=== PATIENT | male | born 1955 | race Caucasian/White ===

== ENCOUNTER 2023-10-28 06:21 | Day surgery (SDC) | payer MEDICARE, OTHER, SELFPAY ==
[2023-10-28] VITALS (10 sets, daily range): BP systolic 135–191; BP diastolic 73–107; BMI 36.8
[2023-10-28] MEDS: NSS 311 ML IV (06:58)
--- NOTE | 2023-10-28 08:02 | ITS.CL.CATH ---
Pulmonary Care Nurse - Catheterization
Cardiac Catheterization
Procedure Report:
CARDIAC CATHETERIZATION REPORT
Date of Procedure: 10/28/2023
Referring: Ubaldo Munguia D.O.
INDICATION: Known coronary artery disease, accelerating angina.
PROCEDURE:
1. Left heart catheterization.
2. Coronary angiography.
ACCESS:
6 Amhar[place] right radial artery.
CATHETERS:
1. 5 [employer]har[place] JR4.
2. 5 [place]har[place] JL 3.5.
HEMODYNAMIC DATA
Weight (kg): 103.5
AO (s/d/x, mmHg): 163/87/115
LV (s/x mmHg): 166/30 (A wave to 43)
LEFT VENTRICULOGRAPHY: Not performed.
CORONARY ANGIOGRAPHY
Dominance: Right.
Left Main: Normal size, bifurcating vessel. There is no coronary artery disease.
LAD: Normal size vessel giving rise to 2 significant diagonals. A patent stent is present in the proximal vessel. There are luminal irregularities throughout.
Ramus: Congenitally absent.
Circumflex: Small size, nondominant vessel giving rise to several small obtuse marginals.
RCA: Large size, dominant vessel with a significant posterolateral arcade that supplies the majority of the inferior and inferolateral wall. There are minor luminal irregularities.
INTERVENTION(S)
None.
Closure Device: Vascular band for the right radial artery.
Radiation (mGy): 409.87
DAP (cm2.Gy): 38.9884
Fluoroscopy time (minutes): 2.0
Sedation time (minutes): 12
CONCLUSIONS
1. Right dominant circulation luminal irregularities in the circumflex, distal LAD and RCA. There is a patent stent in the proximal LAD with no in-stent restenosis.
2. Severely elevated filling pressures (LVEDP = 30 mmHg at 103.5 kg) with severe diastolic dysfunction (A wave to 43 mmHg).
RECOMMENDATIONS:
1. Expectant management after cardiac catheterization via right radial approach.
2. Limited weight bearing on the right wrist for one week.
3. Continue aggressive secondary prevention with high-dose, high potency statin.
4. The patient now carries a diagnosis of heart failure with preserved ejection fraction/diastolic dysfunction. Discontinue hydrochlorothiazide. Start furosemide 40 mg p.o. daily with an IV dose here in the lab.
5. Start SGLT2 inhibitor (dapagliflozin 10 mg daily).
6. Echocardiogram as an outpatient.
7. BMP in 1 week to monitor renal function and potassium levels.
8. Stable for outpatient follow-up.
Copy to: Ubaldo Munguia D.O., Ubaldo Romero M.D., Con Hua M.D.
Ubaldo Munguia DO, FACC, FACP
[2023-10-28] MEDS: LASIX 40 MG IV (08:23)
== END 2023-10-28 10:45 | disposition home or self-care (01) ==
LOC: CATH 06:21
PROVIDERS: ATTENDING PHYSICIAN Internal Medicine Cardiovascular Disease
DX: I25.119 Atherosclerotic heart disease of native coronary artery with unspecified angina pectoris (principal); I10 Essential (primary) hypertension; E78.2 Mixed hyperlipidemia; G47.33 Obstructive sleep apnea (adult) (pediatric); E11.9 Type 2 diabetes mellitus without complications; Z95.5 Presence of coronary angioplasty implant and graft; Z87.891 Personal history of nicotine dependence; Z79.82 Long term (current) use of aspirin; Z79.02 Long term (current) use of antithrombotics/antiplatelets
CPT/HCPCS: 93458; C1894; Q9967

== ENCOUNTER → 2023-11-02 08:06 | Outpatient (REF) | payer MEDICARE, OTHER, SELFPAY ==
[2023-11-02 11:55] LABS: Blood Urea Nitrogen 49 mg/dl (9-20); Calcium 9.2 mg/dl (8.4-10.2); Carbon Dioxide 28 mmol/L (22-30); Chloride 104 mmol/L (98-107); Glucose 114 mg/dl (70-99); Magnesium 2.5 mg/dl (1.6-2.3); Sodium 142 mmol/L (135-145)
== END ==
LOC: REG 08:06
PROVIDERS: ATTENDING PHYSICIAN Internal Medicine Cardiovascular Disease; FAMILY PHYSICIAN Internal Medicine
DX: I50.30 Unspecified diastolic (congestive) heart failure (principal)
CPT/HCPCS: 36415; 80048; 83735

== ENCOUNTER → 2023-11-11 07:57 | Outpatient (REF) | payer MEDICARE, OTHER, SELFPAY | LOC: HWRCS 07:57 | PROVIDERS: ATTENDING PHYSICIAN Internal Medicine Cardiovascular Disease; FAMILY PHYSICIAN Internal Medicine | DX: I25.119 Atherosclerotic heart disease of native coronary artery with unspecified angina pectoris (principal); I10 Essential (primary) hypertension; Z95.5 Presence of coronary angioplasty implant and graft | CPT/HCPCS: 93306 ==